=== PATIENT | male | born 1980 ===

== ENCOUNTER 2016-07-27 20:15 | Emergency (ER) | payer MEDICAID ==
[~2016-07-27] VITALS: Ht 172.7 cm; Wt 97.2 kg
[2016-07-27 20:20] VITALS: Ht 172.7 cm; Wt 97.2 kg
--- NOTE | 2016-07-27 20:50 | ERD ---
ER Documentation Chief Complaint Date/Time DATE: 07/27/16 TIME: 20:40 Chief Complaint Rash on feet for 3 weeks HPI 36 y/o male presents to ED for rash to b both feet for 3 weeks. Stated it was itchy. Denies headache, loss of consciousness, dizziness, blurry vision, changes in vision, photophobia, facial pain, ear pain, throat pain, difficulty swallowing, neck pain, shoulder pain, chest pain, cough, hemoptysis, abdominal pain, back pain, loss of appetite, nausea, vomiting, hematochezia, diarrhea, constipation, urinary symptoms, bladder and bowel incontinences, extremity weakness, extremity tenderness, numbness or tingling sensation, difficulty walking, recent travel, recent exposure to illness, recent antibiotic use in the last 3 months, fever, chills. Allergy: NKA PMH: Denies. Medications: Denies. Surgery: Denies. Family history: Denies. Primary Social History: Not working at this time. Denies smoking, use of alcohol, use of illegal drugs. ROS All systems reviewed and are negative except as per history of present illness. Medications Home Meds Active Scripts Diphenhydramine Hcl* (Benadryl*) 25 Mg Cap, 25 MG PO Q6 Y for itchiness, #30 CAP Prov:LENNIE MTZAR F 07/27/16 Triamcinolone Acetonide* (Kenalog*) 0.25%-15GM Cr, 1 APPLIC TOP BID for 7 Days, EA Prov:LENNIE MTZAR F 07/27/16 Physical Exam Vitals Vital Signs Date Time Temp Pulse Resp B/P Pulse Ox O2 Delivery O2 Flow Rate FiO2 07/27/16 21:18 98.3 83 16 138/85 99 Room Air 07/27/16 20:20 98.3 85 16 144/86 100 Physical Exam CONSTITUTIONAL: Well-appearing; well-nourished; in no apparent distress. HEAD: Normocephalic; atraumatic. EYES: Conjunctiva clear, sclera non-icteric, EOM intact. PERRL Ears: Hearing intact. EACs clear, TMs non-bulging, non-inflamed, translucent & mobile, ossicles normal appearance, No obstructions, no erythema, no discharges Nose: No obstructions. No polyps. No external lesions. Mucosa non-inflamed. No external lesions, septum and turbinates normal. No rhinorrhea. No discharges. Frontal sinus is non-tender to palpation. Maxillary sinus is non-tender to palpation. MOUTH: Moist mucous membranes, no lesion, no obstructions, no vesicles, no thrush, patent airway Throat: Uvula in midline. Right tonsil is +1 with no erythema, no exudate. Left tonsil is +1 with no erythema, no exudate. Tolerating secretions well. Good gag reflex. Patent airway. Neck: Supple, without lesions, bruits, or adenopathy. No mass. Thyroid non- enlarged and non-tender to palpation. CHEST: Symmetrical chest. Respirations even and not labored. No retractions noted. CARDIOVASCULAR: Normal S1, S2. RRR. No murmurs, gallops. RESPIRATORY: Normal chest excursion with respiration; breath sounds clear and equal bilaterally; no wheezes, rhonchi, or rales. Breathing even and unlabored. Speaking in clear, full, and complete sentences w/ ease. ABDOMEN: Normal bowel sounds normal. Soft, round, non-distended, non-guarding, no tenderness, no rebound, no organomegaly, no masses, no pulsating abdominal mass. No hernia. No peritoneal signs. : No CVA tenderness. BACK: Symmetrical shoulder. Spine is midline without deformity, tenderness. No evidence of trauma or deformity. PELVIS: Stable pelvis. No evidence of trauma or deformity. MUSCULOSKELETAL: Normal gait and station. No misalignment, asymmetry, crepitation, defects, tenderness, masses, effusions, decreased range of motion, instability, atrophy or abnormal strength or tone in the head, neck, spine, ribs , pelvis or extremities. No calf tenderness. NEUROVASCULAR: Distal pulses are present. Pedal pulse are present, equal, and normal. Capillary refills are < 2 seconds. NEUROLOGIC: Alert and oriented x4. Speaks full and clear sentences. Cranial Nerves II-XII normal. Sensation to pain, touch, and proprioception normal. Grossly unremarkable. No neurologic deficits. Romberg test is negative. PSYCHOLOGICAL: The patients mood and manner are appropriate. No hallucinations , delusions. Not SI. Not HI. Has the capacity to decide for self SKIN: Normal for age and ethnicity; warm; dry; good turgor; no apparent lesions or exudates. No hives, discoloration. Intact. Rashes to bilateral foot describes as dry non-blanchable. No satellite lesions. Circulation sensation is intact. No neurovascular deficits. Procedures/MDM Examination: Please see physical examination. Disease process, medical treatment was explained to the patient and family member. They verbalized understanding and agreed with the diagnostic tests, medical treatment, and follow-up care. Consultation: None. Differential diagnosis: Scabies versus rash versus atopic dermatitis versus eczema Medical decision [id number] y/o male presents to ED for rash to b both feet for 3 weeks. Stated it was itchy. Patient's complaint, my physical findings are consistent with my final diagnosis of atopic dermatitis. Medications prescribed are the following: Kenalog cream. Benadryl. Patient and family member are made aware of the side effects and adverse reactions of the medications prescribed. Instructed on when to seek emergent and medical attention in case allergic/anaphylactic reactions or severe side effects and or adverse reactions to medications. Patient and family member verbalized understanding. Patient instructed Instructed to follow-up with his PCP in 24-48 hours. PCP to refer patient to operating room technician. Patient was given community resources. Instructed to Call 911 for chest pain, shortness of breath. Advised to come back here in ED as soon as possible for severity of symptoms which includes but not limited to: any new symptoms; shortness of breath/difficulty of breathing; cardiovascular changes; severe gastrointestinal symptoms; signs and symptoms of bleeding and or infection; signs of compartment syndrome/neurovascular changes; neurological changes/deficits. Patient and family member verbalized understanding. Upon discharge, patient is alert and oriented x 4, speaks full and clear sentences, denies pain, has no neurological deficits, has no neurovascular deficits, difficulty of breathing. Breathing even and unlabored. Lung sounds are clear to auscultation. Not in distress. Appears comfortable. Ambulatory with steady gait. Appears satisfied with care provided here in ED. Departure Diagnosis: Primary Impression: Atopic dermatitis Atopic dermatitis type: unspecified Qualified Code: L20.9 - Atopic dermatitis, unspecified type Additional Impression: Rash Condition: Good Additional Instructions: Follow-up with PCP in the next 24-48 hours. Community resources was provided. Also instructed that he needs to see a operating room technician for this. CHARO MTZ Jul 27, 2016 20:49
[2016-07-27] MEDS ORDERED: KEN25O TOP (20:51)
[2016-07-27] MEDS ORDERED: KENC25 TOP (20:52)
[2016-07-27] MEDS ORDERED: BEN25 PO (20:53)
[2016-07-27 21:18] VITALS: BP 138/85; PULSE 83; RESP 16; TEMP 98.3
== END 2016-07-27 21:18 | disposition home or self-care (01) ==
LOC: FTE 20:15
DX: L20.9 Atopic dermatitis, unspecified (principal)
CPT/HCPCS: 99283